=== PATIENT | male | born 1995 | race Caucasian/White ===

== ENCOUNTER 2019-08-07 14:30 | Emergency (ER) | payer SELFPAY ==
[2019-08-07] MEDS ORDERED: DEXAMETHASONE SOD PHOS INJ 10 MG/1 ML VIAL IM ONE (14:42)
[2019-08-07] MEDS ORDERED: FAMOTIDINE 20 MG TABLET PO ONE (14:42)
--- NOTE | 2019-08-07 14:45 | ER Document Report ---
ED Medical Screen (RME) - General Chief Complaint: Facial Swelling Stated Complaint: FACIAL REDNESS,ITCHING,SWELLING Time Seen by Provider: 08/07/19 14:42 Notes: 23 y/o male presents with facial swelling that started around nose last night. States woke up and had swelling around right eye and lips. Took 2 benadryl last dose at 1:30pm with little relief. Denies dyspnea, nausea/vomiting, or abdominal pain. States itchy. Rash noted to nose with swelling around right eye with minimal swelling to lips. No stridor. Lungs CTA bilaterally. Denies any new lotions, detergents, shampoos, new foods. However states he was working under house yesterday. I have greeted and performed a rapid initial assessment of this patient. A comprehensive ED assessment and evaluation of the patient, analysis of test results and completion of the medical decision making process with be conducted by additional ED providers. TRAVEL OUTSIDE OF THE [place] IN LAST 30 DAYS: No Physical Exam - Vital signs Vitals: Temp Pulse Resp BP Pulse Ox 98 F 58 L 18 155/80 H 100 08/07/19 14:34 08/07/19 14:34 08/07/19 14:34 08/07/19 14:34 08/07/19 14:34 Course - Vital Signs Vital signs: Temp Pulse Resp BP Pulse Ox 98 F 58 L 18 155/80 H 100 08/07/19 14:34 08/07/19 14:34 08/07/19 14:34 08/07/19 14:34 08/07/19 14:34
[2019-08-07] MEDS ORDERED: EPINEPHRINE INJ/PF 1 MG/1 ML AMPULE IM ONE (14:47)
[2019-08-07] MEDS ORDERED: DEXAMETHASONE SOD PHOS INJ 10 MG/1 ML VIAL IV ONE (15:40)
[2019-08-07] MEDS ORDERED: FAMOTIDINE INJ/PF 20 MG/2 ML SDV IV ONE (15:40)
[2019-08-07] MEDS ORDERED: DIPHENHYDRAMINE HCL 50 MG/ML VIAL IV ONE (15:40)
--- NOTE | 2019-08-07 15:47 | ER Document Report ---
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 Patient has been underneath his house many times before but never had any rash to his face or hands. TRAVEL OUTSIDE OF THE [place] IN LAST 30 DAYS: No - HPI Onset: This morning Onset/Duration: Sudden Quality of pain: Achy Severity: Mild Pain Level: 1 Associated symptoms: None Exacerbated by: Movement Relieved by: Denies Similar symptoms previously: No Recently seen / treated by doctor: No - Related Data Allergies/Adverse Reactions: No Known Allergies Allergy (Verified 08/07/19 15:19) Home Medications: benadryl Past Medical History - General Information source: Patient - Social History Smoking Status: Never Smoker Cigarette use (# per day): No Chew tobacco use (# tins/day): No Smoking Education Provided: No Frequency of alcohol use: Social Drug Abuse: None Lives with: Family Family History: Reviewed & Not Pertinent Patient has suicidal ideation: No Patient has homicidal ideation: No Review of Systems - Review of Systems Constitutional: See HPI, Weakness - Patient takes niacin on a daily basis for the last year. EENT: See HPI, Eye pain, Blurred vision, Nose congestion, Other - Swelling of facial skin to include nose cheeks periorbital area with eye lid edema superiorly and inferiorly; patient can still see Cardiovascular: No symptoms reported Respiratory: No symptoms reported Gastrointestinal: No symptoms reported Genitourinary: No symptoms reported Male Genitourinary: No symptoms reported Musculoskeletal: No symptoms reported Skin: See HPI, Rash - Bilateral hands with pustular pruritic rash between his fingers Hematologic/Lymphatic: No symptoms reported Neurological/Psychological: No symptoms reported Physical Exam - Vital signs Vitals: Temp Pulse Resp BP Pulse Ox 98 F 58 L 18 155/80 H 100 08/07/19 14:34 08/07/19 14:34 08/07/19 14:34 08/07/19 14:34 08/07/19 14:34 Interpretation: Normal - General General appearance: Alert In distress: Mild - HEENT Head: Normocephalic Eyes: Normal Conjunctiva: Normal Cornea: Normal Extraocular movements intact: Yes Eyelashes: Normal Pupils: PERRL Tympanic membrane: Normal Sinus: Normal Nasal: Normal Mouth/Lips: Normal Mucous membranes: Normal Pharynx: Normal Neck: Normal - Respiratory Respiratory status: No respiratory distress Chest status: Nontender Breath sounds: Normal Chest palpation: Normal - Cardiovascular Rhythm: Regular Heart sounds: Normal auscultation Murmur: No Friction rub: No Jesus Manuel's crunch: No - Abdominal Inspection: Normal Distension: No distension Bowel sounds: Normal Tenderness: Nontender Organomegaly: No organomegaly - Back Back: Normal - Extremities General upper extremity: Normal inspection General lower extremity: Normal inspection - Neurological Neuro grossly intact: Yes Cognition: Normal Orientation: AAOx4 [place] Coma Scale Eye Opening: Spontaneous [place] Coma Scale Verbal: Oriented [place] Coma Scale Motor: Obeys Commands [place] Coma Scale Total: 15 Speech: Normal Cranial nerves: Normal Cerebellar coordination: Normal Motor strength normal: LUE, RUE, LLE, RLE - Psychological Associated symptoms: Normal affect - Skin Skin Temperature: Warm Skin Moisture: Dry Course - Vital Signs Vital signs: Temp Pulse Resp BP Pulse Ox 98 F 58 L 21 H 142/81 H 99 08/07/19 14:34 08/07/19 14:34 08/07/19 15:13 08/07/19 15:13 08/07/19 15:13 Critical Care Note - Critical Care Note Total time excluding time spent on procedures (mins): 90 Comments: Patient's fingerstick blood sugar was 105 therefore the tubes were discarded from his left antecubital IV placement patient was given IV medicines Discharge - Discharge Clinical Impression: Contact dermatitis Qualifiers: Contact dermatitis type: allergic Contact dermatitis trigger: other trigger Qualified Code(s): L23.89 - Allergic contact dermatitis due to other agents; L23.8 - Allergic contact dermatitis due to other agents Condition: Good Disposition: HOME, SELF-CARE Additional Instructions: Follow-up with personal doctor cool water only no soaps to face; apply Lidex cream to hands and hydrocortisone cream to face as well as Caladryl to face and hands for least 5 days. Avoid any contact with the floor joist and the moldy dust you encountered in the future. Take Benadryl 3 times a day for least [address] while taking Benadryl or using dangerous machinery Prescriptions: Pramoxine HCl/Zinc Acetate [Caladryl Clear Lotion] 1 ml TP TID PRN #1 bottle PRN Reason: Prednisone [Deltasone 20 mg Tablet] 1 tab PO DAILY 5 Days #5 tablet Hydrocortisone [Hydrocortisone 1% Cream 28.35 Gm] 1 applic TP BID PRN #1 tube PRN Reason: Fluocinonide [Lidex-E 0.05% Cream 15 Gm Tube] 1 applic TP BID #1 tube
[2019-08-07 16:12] VITALS: BP 137/59
== END 2019-08-07 16:47 | disposition home or self-care (01) ==
LOC: ER 14:30
DX: L23.89 Allergic contact dermatitis due to other agents (principal); R21 Rash and other nonspecific skin eruption; R53.1 Weakness; R22.0 Localized swelling, mass and lump, head; H53.8 Other visual disturbances; Z79.899 Other long term (current) drug therapy
CPT/HCPCS: 82962; J1200; J0171; S0028; J1100; 96372; 96374; 96375; 99285